=== PATIENT | female | born 1950 | race Caucasian/White ===

== ENCOUNTER → 2023-10-26 11:21 | Outpatient (REF) | payer OTHER, SELFPAY | LOC: WDC 11:21 | PROVIDERS: ATTENDING PHYSICIAN Internal Medicine | DX: Z78.0 Asymptomatic menopausal state (principal); Z12.31 Encounter for screening mammogram for malignant neoplasm of breast | CPT/HCPCS: 77063; 77067; 77080 ==

== ENCOUNTER → 2023-12-17 14:41 | Outpatient (REF) | payer OTHER, SELFPAY | LOC: HWRAD 14:41 | PROVIDERS: ATTENDING PHYSICIAN Nurse Practitioner Adult Health | DX: M54.41 Lumbago with sciatica, right side (principal) | CPT/HCPCS: 72110 ==

== ENCOUNTER 2023-12-28 06:17 | Day surgery (SDC) | payer OTHER, SELFPAY ==
[2023-12-23 12:48] VITALS: BMI 24.7
[2023-12-23 13:50] LABS: Hematocrit 39.3 % (37.0-47.0); Hemoglobin 13.4 g/dL (12.0-16.0); Mean Corp Hgb Conc. 34.1 g/dL (33.0-37.0); Mean Corpuscular Hgb 32.6 pg (27.0-31.0); Mean Corpuscular Volume 95.6 fL (81.0-99.0); Mean Platelet Volume 8.7 fL (7.4-10.4); Platelet Count 293 10^3/uL (130-400); Red Blood Cell Count 4.11 10^6/uL (4.20-5.40); Red Cell Dist. Width 13.3 % (11.5-14.5); White Blood Cell Count 5.9 10^3/uL (4.8-10.8)
[2023-12-23 14:18] LABS: Blood Urea Nitrogen 25 mg/dl (7-17); Calcium 9.6 mg/dl (8.4-10.2); Carbon Dioxide 28 mmol/L (22-30); Chloride 105 mmol/L (98-107); Estimated Creatinine Clearance 61 ml/min; Glucose 83 mg/dl (70-99); Potassium 4.5 mmol/L (3.5-5.1); Sodium 134 mmol/L (135-145); eGFR > 60.00
[2023-12-28] VITALS (13 sets, daily range): BP systolic 95–133; BP diastolic 34–80; BMI 24.7
[2023-12-28] MEDS: NORMOSOL-R 1000 IV (08:19)
[2023-12-28] MEDS: Pyridium 200 MG PO (08:19)
[2023-12-28] MEDS: DILAUDID 0.25 MG IV ×2 (09:49→10:02)
== END 2023-12-28 11:12 | disposition home or self-care (01) ==
LOC: SDS 06:17
PROVIDERS: ATTENDING PHYSICIAN Obstetrics & Gynecology; FAMILY PHYSICIAN Family Medicine; OTHER PHYSICIAN Obstetrics & Gynecology Gynecology
DX: N39.3 Stress incontinence (female) (male) (principal); N36.42 Intrinsic sphincter deficiency (ISD)
CPT/HCPCS: 51715; 36415; 80048; 85027

== ENCOUNTER → 2024-01-13 12:09 | Outpatient (REF) | payer OTHER, SELFPAY | LOC: RAD 12:09 | PROVIDERS: ATTENDING PHYSICIAN Family Medicine | DX: Z87.891 Personal history of nicotine dependence (principal) | CPT/HCPCS: 71271 ==

== ENCOUNTER 2024-02-21 06:08 | Day surgery (SDC) | payer OTHER, SELFPAY ==
[2024-02-21] VITALS (7 sets, daily range): BP systolic 96–131; BP diastolic 59–76; BMI 23.9
[2024-02-21] MEDS: NORMOSOL-R 1000 IV (08:01)
[2024-02-21] MEDS: DILAUDID 0.5 MG IV (09:36)
== END 2024-02-21 11:00 | disposition home or self-care (01) ==
LOC: SDS 06:08
PROVIDERS: ATTENDING PHYSICIAN Obstetrics & Gynecology
DX: T85.848A Pain due to other internal prosthetic devices, implants and grafts, initial encounter (principal); M54.31 Sciatica, right side; Y83.8 Other surgical procedures as the cause of abnormal reaction of the patient, or of later complication, without mention of misadventure at the time of the procedure
CPT/HCPCS: 15851

== ENCOUNTER → 2024-05-31 12:58 | Outpatient (REF) | payer OTHER, SELFPAY | LOC: RAD 12:58 | PROVIDERS: ATTENDING PHYSICIAN Nurse Practitioner Adult Health; FAMILY PHYSICIAN Family Medicine | DX: M79.661 Pain in right lower leg (principal); M79.662 Pain in left lower leg | CPT/HCPCS: 93970 ==

== ENCOUNTER → 2024-10-27 15:18 | Outpatient (REF) | payer OTHER, SELFPAY | LOC: WDC 15:18 | PROVIDERS: ATTENDING PHYSICIAN Family Medicine | DX: Z12.31 Encounter for screening mammogram for malignant neoplasm of breast (principal) | CPT/HCPCS: 77063; 77067 ==

== ENCOUNTER → 2024-12-05 09:22 | Outpatient (REF) | payer OTHER, SELFPAY | LOC: DHSLP 09:22 | PROVIDERS: ATTENDING PHYSICIAN Family Medicine | DX: G47.30 Sleep apnea, unspecified (principal); R06.83 Snoring; R53.83 Other fatigue; G47.62 Sleep related leg cramps | CPT/HCPCS: 95806 ==